=== PATIENT | male | born 1935 | race Caucasian/White ===

== ENCOUNTER 2016-04-21 10:50 | Outpatient (CLI) ==
[2015-10-17 23:08] VITALS: BMI 29.7
[2016-04-21 11:22] LABS: HEMATOCRIT 35.8 % (42.0-52.0); HEMOGLOBIN 11.2 g/dl (14.0-18.0); MEAN CORPUSCULAR HEMOGLOBIN 27.3 pg (27.0-31.0); MEAN CORPUSCULAR HGB CONC 31.3 (31.8-35.4); MEAN CORPUSCULAR VOLUME 87.3 fl (80.0-94.0); RED BLOOD COUNT 4.1 10^6/ul (4.70-6.10); WHITE BLOOD COUNT 5.69 K/ul (4.2-10.2)
[2016-04-21 11:25] LABS: BILIRUBIN,URINE Negative (NEGATIVE); KETONES,URINE Negative (NEGATIVE); LEUKOCYTE ESTERASE ,URINE 1+ (NEGATIVE); NITRITE,URINE Negative (NEGATIVE); PH,URINE 5.5 (5-9); PROTEIN,URINE Negative (NEGATIVE); URINE, BLOOD Trace-intact (NEGATIVE)
[2016-04-21 11:28] LABS: ADD URINE MICROSCOPIC YES
[2016-04-21 11:39] LABS: ALBUMIN 3.5 g/dL (3.4-5.0); ALBUMIN/GLOBULIN RATIO 1.06; ANION GAP 9.3; BILIRUBIN,TOTAL 0.48 mg/dL (0.00-1.20); BUN/CREATININE RATIO 12.42; CALCIUM 9.3 mg/dL (8.2-10.2); CREATININE 1.69 mg/dL (0.60-1.10); MAGNESIUM 1.9 mg/dL (1.7-2.2); PHOSPHORUS 3.7 mg/dL (2.3-3.7); POTASSIUM 4.3 mmol/L (3.5-5.1); TOTAL PROTEIN 6.8 g/dL (5.8-8.1); URIC ACID 4.2 mg/dL (2.6-7.2)
[2016-04-22 07:17] LABS: URINE CREATINE 162.6 mg/dL (Not Estab.)
[2016-04-22 09:28] LABS: VITAMIN D25 32.8 ng/mL (30.0-100.0)
== END 2016-04-21 10:51 | disposition home or self-care (01) ==
LOC: LAB 10:50
PROVIDERS: ATTEND Nurse Practitioner
DX: N18.3 Chronic kidney disease, stage 3 (moderate) (principal); E55.9 Vitamin D deficiency, unspecified
CPT/HCPCS: 36415; 80053; 81001; 82306; 82570; 83735; 83970; 84100; 84156; 84550; 85027

== ENCOUNTER 2016-11-19 14:06 | Outpatient (CLI) ==
[2015-10-17 23:08] VITALS: BMI 29.7
[2016-11-19 14:30] LABS: HEMATOCRIT 35.6 % (42.0-52.0); HEMOGLOBIN 11.7 g/dl (14.0-18.0); MEAN CORPUSCULAR HEMOGLOBIN 28.1 pg (27.0-31.0); MEAN CORPUSCULAR HGB CONC 32.9 (31.8-35.4); MEAN CORPUSCULAR VOLUME 85.6 fl (80.0-94.0); RED BLOOD COUNT 4.16 10^6/ul (4.70-6.10); WHITE BLOOD COUNT 5.75 K/ul (4.2-10.2)
[2016-11-19 14:32] LABS: ADD URINE MICROSCOPIC YES; BILIRUBIN,URINE Negative (NEGATIVE); KETONES,URINE Negative (NEGATIVE); LEUKOCYTE ESTERASE ,URINE 1+ (NEGATIVE); NITRITE,URINE Negative (NEGATIVE); PROTEIN,URINE Negative (NEGATIVE); URINE, BLOOD Negative (NEGATIVE)
[2016-11-19 15:14] LABS: ALBUMIN 3.5 g/dL (3.4-5.0); ALBUMIN/GLOBULIN RATIO 1.09; ANION GAP 14.3; BILIRUBIN,TOTAL 0.61 mg/dL (0.00-1.20); BUN/CREATININE RATIO 11.76; CALCIUM 9.7 mg/dL (8.2-10.2); CREATININE 2.04 mg/dL (0.60-1.10); PHOSPHORUS 3.7 mg/dL (2.3-3.7); POTASSIUM 4.3 mmol/L (3.5-5.1); TOTAL PROTEIN 6.7 g/dL (5.8-8.1); URIC ACID 5.2 mg/dL (2.6-7.2)
[2016-11-20 07:17] LABS: URINE CREATININE 171.1 mg/dL (Not Estab.)
[2016-11-20 15:04] LABS: URINE MALB/CR RATIO 4.5 mg/g creat (0.0-30.0)
== END 2016-11-19 14:07 | disposition home or self-care (01) ==
LOC: LAB 14:06
PROVIDERS: ATTEND Nurse Practitioner
DX: N18.3 Chronic kidney disease, stage 3 (moderate) (principal); E55.9 Vitamin D deficiency, unspecified
CPT/HCPCS: 36415; 80053; 81001; 82043; 82306; 83735; 83970; 84100; 84550; 85027

== ENCOUNTER 2016-12-15 14:24 | Outpatient (CLI) ==
[2015-10-17 23:08] VITALS: BMI 29.7
[2016-12-15 14:58] LABS: ANION GAP 15.4; BUN/CREATININE RATIO 9.42; CALCIUM 9.6 mg/dL (8.2-10.2); CREATININE 1.91 mg/dL (0.60-1.10); POTASSIUM 4.4 mmol/L (3.5-5.1)
== END 2016-12-15 14:25 | disposition home or self-care (01) ==
LOC: LAB 14:24
PROVIDERS: ATTEND Nurse Practitioner
DX: N18.3 Chronic kidney disease, stage 3 (moderate) (principal)
CPT/HCPCS: 36415; 80048

== ENCOUNTER 2017-03-18 14:05 | Outpatient (CLI) ==
[2015-10-17 23:08] VITALS: BMI 29.7
[2017-03-18 14:29] LABS: HEMATOCRIT 32.3 % (42.0-52.0); HEMOGLOBIN 10.6 g/dl (14.0-18.0); MEAN CORPUSCULAR HEMOGLOBIN 28.4 pg (27.0-31.0); MEAN CORPUSCULAR HGB CONC 32.8 (31.8-35.4); MEAN CORPUSCULAR VOLUME 86.6 fl (80.0-94.0); RED BLOOD COUNT 3.73 10^6/ul (4.70-6.10); WHITE BLOOD COUNT 6.47 K/ul (4.2-10.2)
[2017-03-18 14:31] LABS: BILIRUBIN,URINE Negative (NEGATIVE); KETONES,URINE Negative (NEGATIVE); LEUKOCYTE ESTERASE ,URINE Trace (NEGATIVE); NITRITE,URINE Negative (NEGATIVE); PROTEIN,URINE Negative (NEGATIVE); URINE, BLOOD Negative (NEGATIVE)
[2017-03-18 14:32] LABS: ADD URINE MICROSCOPIC YES
[2017-03-18 14:58] LABS: ALBUMIN 3.5 g/dL (3.4-5.0); ANION GAP 13.4; BILIRUBIN,TOTAL 0.56 mg/dL (0.00-1.20); BUN/CREATININE RATIO 13.24; CALCIUM 9.3 mg/dL (8.2-10.2); CREATININE 2.19 mg/dL (0.60-1.10); POTASSIUM 4.4 mmol/L (3.5-5.1); URIC ACID 5.5 mg/dL (2.6-7.2)
[2017-03-19 09:52] LABS: URINE CREATININE 122.1 mg/dL (Not Estab.); URINE TOTAL PROTEIN 6.1 mg/dL (Not Estab.)
[2017-03-19 10:11] LABS: MAGNESIUM 1.9 mg/dL (1.7-2.2); PHOSPHORUS 3.6 mg/dL (2.3-3.7)
== END 2017-03-18 14:06 | disposition home or self-care (01) ==
LOC: LAB 14:05
PROVIDERS: ATTEND Nurse Practitioner
DX: N18.3 Chronic kidney disease, stage 3 (moderate) (principal)
CPT/HCPCS: 36415; 80053; 81001; 82570; 83735; 84100; 84156; 84550; 85027

== ENCOUNTER 2017-07-01 09:54 | Outpatient (CLI) ==
[2015-10-17 23:08] VITALS: BMI 29.7
== END 2017-07-01 09:55 | disposition home or self-care (01) ==
LOC: LAB 09:54
PROVIDERS: ATTEND Family Medicine
DX: E78.2 Mixed hyperlipidemia (principal)
CPT/HCPCS: 36415; 80053; 80061

== ENCOUNTER 2018-09-15 13:09 | Outpatient (CLI) ==
[2015-10-17 23:08] VITALS: BMI 29.7
== END 2018-09-15 13:10 | disposition home or self-care (01) ==
LOC: LAB 13:09
PROVIDERS: ATTEND Nurse Practitioner
DX: N18.3 Chronic kidney disease, stage 3 (moderate) (principal); E55.9 Vitamin D deficiency, unspecified
CPT/HCPCS: 36415; 80053; 81001; 82306; 82570; 83735; 83970; 84100; 84156; 84550; 85027